=== PATIENT | male | born 2000 | race American Indian/Alaskan Native ===

== ENCOUNTER 2020-04-19 02:56 | Emergency (ER) | payer SELFPAY ==
[2020-04-19 05:10] VITALS: BP 136/41
--- NOTE | 2020-04-19 07:01 | XRay Report ---
CHEST 1 VIEW 0633 INDICATION / CLINICAL INFORMATION: dyspnea COMPARISON: None available. FINDINGS: SUPPORT DEVICES: Stable HEART / MEDIASTINUM: Stable LUNGS / PLEURA: No significant pulmonary or pleural abnormality. No pneumothorax. ADDITIONAL FINDINGS: No significant additional findings. IMPRESSION: No significant changes Signer Name: Blayne Huynh MD Signed: 04/19/2020 6:57 AM Workstation Name: [id number]
--- NOTE | 2020-04-19 07:29 | Emergency Department Report ---
ED General Adult HPI - General Chief complaint: Arrhythmia/Palpitations Stated complaint: CHEST PAIN PUI?: No Time Seen by Provider: 04/19/20 07:28 Source: patient Mode of arrival: Ambulatory Limitations: No Limitations - History of Present Illness Initial comments: This is a 19-year-old male with no prior medical history who presents the ED today complaining of a sudden feeling of numbness to his right arm and a fast heartbeat last night while he was driving home. Patient states that he called the paramedics at the scene because he pulled over to the curb. Patient stated that when paramedics got there they told him his heart rate was normal. Patient states that symptoms only lasted a few minutes. He denies fever/chest pain/shortness of breath/dizziness or lightheadedness or any other feeling. - Related Data Previous Rx's Medication Instructions Recorded Last Taken Type Amoxicillin [Trimox CAP] 500 mg PO Q8H #30 capsule 04/12/14 Unknown Rx HYDROcodone/APAP 7.5-325 [[place] 1 each PO Q6HR PRN #20 tablet 04/12/14 Unknown Rx 7.5-325 mg TAB] Allergies Allergy/AdvReac Type Severity Reaction Status Date / Time No Known Allergies Allergy Verified 04/12/14 02:36 ED Review of Systems ROS: Stated complaint: CHEST PAIN Other details as noted in HPI Comment: All other systems reviewed and negative ED Past Medical Hx - Past Medical History Previous Medical History?: Yes Additional medical history: murmur - Surgical History Past Surgical History?: No - Social History Smoking Status: Never Smoker - Medications Home Medications: Home Medications Medication Instructions Recorded Confirmed Last Taken Type Amoxicillin [Trimox CAP] 500 mg PO Q8H #30 capsule 04/12/14 Unknown Rx HYDROcodone/APAP 7.5-325 [[place] 1 each PO Q6HR PRN #20 tablet 04/12/14 Unknown Rx 7.5-325 mg TAB] ED Physical Exam - General Limitations: No Limitations General appearance: alert, in no apparent distress - Head Head exam: Present: atraumatic, normocephalic - Eye Eye exam: Present: normal appearance, PERRL - ENT ENT exam: Present: mucous membranes moist - Neck Neck exam: Present: normal inspection - Respiratory Respiratory exam: Present: normal lung sounds bilaterally. Absent: respiratory distress, wheezes, rales, rhonchi, chest wall tenderness - Cardiovascular Cardiovascular Exam: Present: regular rate, normal rhythm. Absent: systolic murmur, diastolic murmur, rubs, gallop - GI/Abdominal GI/Abdominal exam: Present: soft, normal bowel sounds - Rectal Rectal exam: Present: deferred - Extremities Exam Extremities exam: Present: normal inspection - Back Exam Back exam: Present: normal inspection - Neurological Exam Neurological exam: Present: alert, oriented X3 - Psychiatric Psychiatric exam: Present: normal affect, normal mood - Skin Skin exam: Present: warm, dry, intact, normal color. Absent: rash ED Course Vital Signs 04/19/20 03:51 Temperature 98.1 F Pulse Rate 62 Respiratory 18 Rate Blood Pressure 136/41 O2 Sat by Pulse 97 Oximetry ED Medical Decision Making - Lab Data Result diagrams: 04/19/20 07:50 04/19/20 07:50 Laboratory Last Values WBC 5.6 K/mm3 (4.5-11.0) 04/19/20 07:50 RBC 4.34 M/mm3 (3.65-5.03) 04/19/20 07:50 Hgb 13.3 gm/dl (11.8-15.2) 04/19/20 07:50 Hct 39.4 % (35.5-45.6) 04/19/20 07:50 MCV 91 fl (84-94) 04/19/20 07:50 MCH 31 pg (28-32) 04/19/20 07:50 MCHC 34 % (32-34) 04/19/20 07:50 RDW 12.8 % (13.2-15.2) L 04/19/20 07:50 Plt Count 187 K/mm3 (140-440) 04/19/20 07:50 Lymph % (Auto) 21.0 % (13.4-35.0) 04/19/20 07:50 [place] % (Auto) 10.7 % (0.0-7.3) H 04/19/20 07:50 Eos % (Auto) 0.5 % (0.0-4.3) 04/19/20 07:50 Baso % (Auto) 0.9 % (0.0-1.8) 04/19/20 07:50 Lymph # 1.2 K/mm3 (1.2-5.4) 04/19/20 07:50 [place] # 0.6 K/mm3 (0.0-0.8) 04/19/20 07:50 Eos # 0.0 K/mm3 (0.0-0.4) 04/19/20 07:50 Baso # 0.1 K/mm3 (0.0-0.1) 04/19/20 07:50 Seg Neutrophils % 66.9 % (40.0-70.0) 04/19/20 07:50 Seg Neutrophils # 3.7 K/mm3 (1.8-7.7) 04/19/20 07:50 Sodium 139 mmol/L (137-145) 04/19/20 07:50 Potassium 4.5 mmol/L (3.6-5.0) 04/19/20 07:50 Chloride 102.4 mmol/L (98-107) 04/19/20 07:50 Carbon Dioxide 26 mmol/L (22-30) 04/19/20 07:50 Anion Gap 15 mmol/L 04/19/20 07:50 BUN 9 mg/dL (9-20) 04/19/20 07:50 Creatinine 1.1 mg/dL (0.8-1.3) 04/19/20 07:50 Estimated GFR > 60 ml/min 04/19/20 07:50 BUN/Creatinine Ratio 8 % 04/19/20 07:50 Glucose 111 mg/dL (75-100) H 04/19/20 07:50 Calcium 9.3 mg/dL (8.4-10.2) 04/19/20 07:50 Total Bilirubin 0.40 mg/dL (0.1-1.2) 04/19/20 07:50 AST 20 units/L (5-40) 04/19/20 07:50 ALT 11 units/L (7-56) 04/19/20 07:50 Alkaline Phosphatase 65 units/L (35-129) 04/19/20 07:50 Troponin T < 0.010 ng/mL (0.00-0.029) 04/19/20 07:50 Total Protein 6.9 g/dL (6.3-8.2) 04/19/20 07:50 Albumin 4.6 g/dL (3.9-5) 04/19/20 07:50 Albumin/Globulin Ratio 2.0 % 04/19/20 07:50 - EKG Data EKG shows normal: sinus rhythm Rate: normal - Radiology Data Radiology results: report reviewed Fluoro Time In Minutes: CHEST 1 VIEW 0633 INDICATION / CLINICAL INFORMATION: dyspnea COMPARISON: None available. FINDINGS: SUPPORT DEVICES: Stable HEART / MEDIASTINUM: Stable LUNGS / PLEURA: No significant pulmonary or pleural abnormality. No pneumothorax. ADDITIONAL FINDINGS: No significant additional findings. IMPRESSION: No significant changes Signer Name: Blayne Huynh MD Signed: 04/19/2020 6:57 AM Workstation Name: [id number] Transcribed By: MAICOL Dictated By: Blayne Huynh MD Electronically Authenticated By: Blayne Huynh MD Signed Date/Time: 04/19/20 0657 - Medical Decision Making 19-year-old female presents the ED with work-up possibly have been a panic attack. All labs are within normal limits, chest x-ray normal, EKG normal Discussed with patient follow-up with therapist as well as primary care ph ysician. Referral was given. Vital signs are normal patient is in no acute distress. I did discuss with the patient if any worsening symptoms or any new symptoms arise to return to the emergency room Critical care attestation.: If time is entered above; I have spent that time in minutes in the direct care of this critically ill patient, excluding procedure time. ED Disposition Clinical Impression: Panic attack, Paresthesia of finger Disposition: DC-01 TO HOME OR SELFCARE Is pt being admited?: No Does the pt Need Aspirin: No Condition: Stable Instructions: Panic Disorder (ED), Stress (ED) Additional Instructions: Make sure to follow up with the primary care physician as discussed. Make an appointment with a therapist as discussed. If you have any worsening symptoms or develop new symptoms please return to ED immediately. Referrals: PRIMARY CAREMD [Primary Care Provider] - 3-5 Days Forms: Accompanied Note, Work/School Release Form(ED) Time of Disposition: 09:05
[2020-04-19 07:59] LABS: Basophils # (Auto) 0.1 K/mm3 (0.0-0.1); Basophils % (Auto) 0.9 % (0.0-1.8); Eosinophils % (Auto) 0.5 % (0.0-4.3); Hematocrit 39.4 % (35.5-45.6); Hemoglobin 13.3 gm/dl (11.8-15.2); Lymphocytes # (Auto) 1.2 K/mm3 (1.2-5.4); Mean Corpuscular HGB Conc 34 % (32-34); Mean Corpuscular Volume 91 fl (84-94); Monocytes # (Auto) 0.6 K/mm3 (0.0-0.8); Monocytes % (Auto) 10.7 % (0.0-7.3); Platelet Count 187 K/mm3 (140-440); Red Blood Count 4.34 M/mm3 (3.65-5.03); Red Cell Distribution Width 12.8 % (13.2-15.2)
[2020-04-19 08:31] LABS: Alanine Aminotransferase 11 units/L (7-56); Albumin 4.6 g/dL (3.9-5); BUN/Creatinine Ratio 8; Blood Urea Nitrogen 9 mg/dL (9-20); Calcium 9.3 mg/dL (8.4-10.2); Hemolysis Index 9
== END 2020-04-19 09:35 | disposition home or self-care (01) ==
LOC: ED 02:56
DX: F41.0 Panic disorder [episodic paroxysmal anxiety] (principal); R20.2 Paresthesia of skin; Z79.899 Other long term (current) drug therapy
CPT/HCPCS: 36415; 71045; 80053; 84484; 85025; 93005